=== PATIENT | male | born 1985 | race Hispanic/Latino ===

== ENCOUNTER 2017-10-14 09:35 | Emergency (ER) | payer SELFPAY ==
[2017-10-14] MEDS ORDERED: Ondansetron HCl/PF 4 MG/2 ML Vial ONE (09:49)
[2017-10-14] MEDS ORDERED: Morphine 4 MG/ML Carpuject ONE (09:49)
[2017-10-14] MEDS ORDERED: Ketorolac Tromethamine 30 MG/ML VIAL ONE (09:49)
[2017-10-14 10:02] LABS: #Basophils 0.1 thou/uL (0.0-0.2); #Eosinphils 0.2 thou/uL (0.0-0.7); #Lymphocytes 3.5 thou/uL (1.20-3.40); #Monocytes 0.6 thou/uL (0.11-0.59); #Neutrophils 9.2 thou/uL (1.40-6.50); %Basophils 0.5 % (0.0-1.0); %Eosinophils 1.1 % (0.0-10.0); %Lymphocytes 25.8 % (21.0-51.0); %Monocytes 4.7 % (0.0-10.0); %Neutrophils 67.8 % (42.0-75.0); Hemoglobin 16.1 g/dL (14.0-18.0); Mean Corpuscular HGB CONC 34.2 g/dL (32.0-36.0); Mean Corpuscular Hemoglobin 31.1 pg (27.0-31.0); Mean Corpuscular Volume 90.9 fl (80.0-94.0); Platelet Count 276 thou/uL (130-400); RBC Distribution Width 11.8 % (11.5-14.5); Red Blood Cell (RBC) Count 5.17 mill/uL (4.70-6.10); White Blood Cell (WBC) Count 13.6 thou/uL (4.8-10.8)
--- NOTE | 2017-10-14 10:53 | CT ---
CT ABDOMEN AND PELVIS WITHOUT IV CONTRAST: Date: 10/14/17 Multiple axial tomograms obtained through abdomen and pelvis without IV enhancement. HISTORY: Right flank pain. History of kidney stones. FINDINGS: Lung bases are clear. There is a sliding diaphragmatic hernia noted. The liver, spleen, and pancreas are unremarkable given the limitations of a nonenhanced study. Adrenal glands normal. Review of the kidneys shows mild right hydronephrosis. There is a tiny calculus in the distal right u reter near the UVJ measuring in the 2.0 mm range. Bladder is contracted and not evaluated. No evidence of calculus seen involving the left urinary tract. Small bowel loops are normal. Appendix is normal. Aorta is normal caliber. No free fluid. IMPRESSION: Tiny calculus in the distal right ureter near the UVJ producing mild right hydronephrosis. POS: [facility]
[2017-10-14 11:27] LABS: ALT (SGPT) 27 U/L (8-55); AST (SGOT) 42 U/L (5-34); Albumin 4.3 g/dL (3.5-5.0); Alkaline Phosphatase 93 U/L (40-150); Anion Gap 18 mmol/L (10-20); BUN (Urea Nitrogen) 15 mg/dL (8.9-20.6); Bilirubin, Total 0.7 mg/dL (0.2-1.2); Calc. Creatinine Clearance 0 mL/min (70-130); Calcium 9.1 mg/dL (7.8-10.44); Carbon Dioxide 20 mmol/L (22-29); Chloride 105 mmol/L (98-107); Estimated GFR-MDRD 90; Globulin 3.4 g/dL (2.4-3.5); Glucose 126 mg/dL (70-105); Lipase 16 U/L (8-78); Potassium 4.8 mmol/L (3.5-5.1); Protein, Total 7.7 g/dL (6.0-8.3); Sodium 138 mmol/L (136-145)
[2017-10-14 12:03] LABS: Bilirubin Negative (Negative); Blood, Urine Large (Negative); Clarity CLOUDY (Clear); Glucose, Urine (Dipstick) Negative (Negative); Leukocyte Negative (Negative); Nitrite Negative (Negative); Protein, Urine (Dipstick) 30 mg/dL (Neg-Trace); Specific Gravity, Urine 1.029 (1.002-1.036); Urobilinogen 0.2 mg/dL (0.2-1.0); pH, Urine 5.5 (5.0-9.0)
[2017-10-14 12:04] LABS: Bacteria/HPF None Seen HPF (None Seen); Hyaline Casts/LPF 4-6 HYALINE CAST LPF (0-3 Hyaline); RBC/HPF GREATER THAN 50-TNTC HPF (0-3); Squamous Epithelial 0-3 HPF (0-3)
== END 2017-10-14 12:36 | disposition home or self-care (01) ==
LOC: ERS 09:35
DX: N20.0 Calculus of kidney (principal)
CPT/HCPCS: 74176; 80053; 81003; 81015; 83690; 85025; 96361; 96374; 96375; J1885; J2270; J2405